=== PATIENT | female | born 1985 | race Caucasian/White ===

== ENCOUNTER 2022-09-21 15:06 | Outpatient (REF) | payer BC, SELFPAY ==
--- OUTSIDE RECORDS SUMMARY | 2022-09-21 15:11 | XMS_ITS | Clinical Summary ---
:1985 Author Organization [facility] [place] [address] Care Team Providers Name Role Phone Clinic, No Pcp Or Primary Care Provider Unavailable Allergies No known active allergies Medications Medication Sig Dispensed Refills Start Date End Date Status valACYclovir (VALTREX) Take 1 g by mouth 0 Active 1 gram tablet 2 times daily if needed for Other (Specify). Active Problems Not on file Social History Tobacco Use Types Packs/Day Years Used Date Never Assessed Sex Assigned at Date Recorded Not on file Last Filed Vital Signs Vital Sign Reading Time Taken Comments Blood Pressure 116/66 12/15/2019 4:31 PM [employer] Pulse 85 12/15/2019 4:31 PM [employer] Temperature 36.8 ??C (98.2 ??F) 12/15/2019 3:32 PM [employer] Respiratory Rate 18 12/15/2019 3:32 PM [employer] Oxygen Saturation 97% 12/15/2019 4:31 PM [employer] Inhaled Oxygen Concentration - - Weight 95.2 kg (209 lb 12.8 oz) 12/15/2019 3:32 PM [employer] Height 172.7 cm (5' 8) 12/15/2019 3:32 PM [employer] Body Mass Index 31.9 12/15/2019 3:32 PM [employer] Plan of Treatment Not on file Results Not on filefrom Last 3 Months Insurance Payer Benefit Plan / Subscriber ID Effective Dates Phone Addre ss Type Group BLUE CROSS BLUE CROSS OF [id number] 2019-Present [address] [place] [address] Care Teams Legal Billing Clerk Relationship Specialty Start Date End Date Clinic, No Pcp Or PCP - General 12/15/19 .
[2022-09-25 17:45] LABS: Progesterone, HPLC-MS/MS 16.92 ng/mL
== END 2022-09-21 15:07 | disposition home or self-care (01) ==
LOC: NPINS 15:06
PROVIDERS: PCP Physician Assistant Medical
DX: O09.01 Supervision of pregnancy with history of infertility, first trimester (principal)
CPT/HCPCS: 84144

== ENCOUNTER 2023-01-10 09:49 | Emergency (ER) | payer BC, SELFPAY ==
[2023-01-10 10:01] VITALS: BP 122/83; PULSE 80; RESP 18; TEMP 36.8; O2SAT 97; BMI 30.3
--- NOTE | 2023-01-10 10:25 | CRLHL7_ITS ---
For Patients: As a result of the Century Cures Act, medical imaging exams and procedure reports are released immediately into your electronic medical record. You may view this report before your referring provider. If you have questions, please contact your health care provider. INDICATION: Diffuse pelvic pain 2 days post egg retrieval.. TECHNIQUE: Ultrasound pelvis transabdominal and transvaginal for better assessment or to better visualize the endometrium. Real-time sonographic images with spectral and color Doppler imaging of the ovaries were obtained. COMPARISON: None. FINDINGS: Uterus: Normal echotexture of the myometrium. No masses. Endometrium: Transvaginal imaging was performed to better evaluate the endometrium. Endometrial thickness measures 10 mm. No sign of endometrial mass or fluid. Right ovary measures 3.8 x 2.5 x 2.8 cm and left ovary measures 3.8 x 2.6 x 3.7 cm. No ovarian or adnexal masses. Normal arterial and venous blood flow is demonstrated in both ovaries. Cul-de-sac: No significant free fluid. IMPRESSION: Ovaries and uterus are unremarkable. No evidence of hemorrhage or fluid collections post egg retrieval. Dictated by Baylee Smith MD @ 01/10/2023 12:58:31 PM (Electronically Signed)
--- NOTE | 2023-01-10 11:47 | ED.NURSE ---
Patient feeling improvement of symptoms noted after ultrasound. Would like to undergo urine and blood lab work but declined IV fluids and medications. Provider updated.
[2023-01-10 11:56] LABS: Appearance Urine Clear (Clear); Bilirubin Urine Negative (Negative); Blood Urine Negative (Negative); Color Urine Yellow (Yellow); Glucose Urine Negative (Negative); Ketones Urine Negative (Negative); Leukocyte Esterase Urine Negative (Negative); Nitrite Urine Negative (Negative); Protein Urine Negative (Negative); Urobilinogen Urine 0.2 (0.2-1.0)
--- NOTE | 2023-01-10 12:05 | ED.NURSE ---
Patient was unable to get labs through draw, decided to have IV insertion and fluids.
[2023-01-10 12:10] LABS: Basophils Absolute Auto 0.01 K/uL (0.00-0.30); Basophils Percent Auto 0.2 % (0.0-3.0); Eosinophils Absolute Auto 0.04 K/uL (0.00-0.50); Eosinophils Percent Auto 0.7 % (0.0-7.0); Hematocrit 41.7 % (33.0-51.0); Hemoglobin* 13.9 gm/dL (12.0-16.0); Immature Granulocytes Abs Auto 0.03 K/uL (0.00-0.30); Immature Granulocytes Pct Auto 0.5 %; Lymphocytes Absolute Auto 1.18 K/uL (0.90-2.90); Lymphocytes Percent Auto 20.2 % (20-44); Mean Corpuscular HGB Conc 33 gm/dL (32-36); Mean Corpuscular Hemoglobin 31 pg (26-34); Mean Corpuscular Volume 94 fL (80-100); Monocytes Percent Auto 7.7 % (0.0-11.0); Neutrophils Absolute Auto 4.12 K/uL (1.7-7.0); Neutrophils Percent Auto 70.7 % (42.0-72.0); Platelet Count* 185 K/uL (140-440); RDW Coefficient of Variation % 12.1 % (11.5-15.5); Red Blood Count 4.43 m/uL (4.00-5.20); White Blood Count* 5.83 K/uL (4.50-11.00)
[2023-01-10] MEDS: KETOROLAC 30 MG/ML inj IVP (12:10)
[2023-01-10] MEDS: 0.9 % SODIUM CHLORIDE 1000 ml 1,000 ML IV (12:11)
[2023-01-10 12:16] LABS: Slide Review Reflex No
--- NOTE | 2023-01-10 12:25 | ED_ITS ---
HPI - Abdominal Pain General Date Seen: 01/10/23 Chief Complaint: Abdominal Pain Stated Complaint: Abdominal pain, lightheaded Time Seen by Provider: 01/10/23 09:57 Source: patient Mode of arrival: ambulatory Limitations: no limitations History of Present Illness HPI narrative: Patient is a nice 37-year-old female who is undergoing fertility treatment, she underwent a egg harvesting 2 days ago, this was done transvaginally with ultrasound guidance, she has had pain off and on since then and the pain became exquisitely tender today, she describes across her lower quadrants, doubling her over, not associated with fevers chills or sweats, she has had normal bowel movements denies any dysuria frequency associated with this, no nausea vomiting but she has felt maybe a little bit hot. Denies any sore throat cold-like symptoms, she called her reproductive provider, and they have not gotten back to her yet. MD elicited complaint: abdominal pain Pertinent past history: none Related Data Patient : No Home Medications Medication Instructions Recorded Confirmed bupropion HCl 150 mg tablet,12 hr mg PO BID 07/01/22 08/24/22 sustained-release doxycycline hyclate 100 mg tablet mg PO 07/01/22 08/24/22 103-folic acid 400 tab PO 07/01/22 08/24/22 mcg-omeg3 32.5 mg-dha-fish oil chew tablet ( with DHA and Folic Acid) Previous Rx's Medication Instructions Recorded sertraline 50 mg tablet 50 mg PO QDAY #60 tabs 08/24/22 valacyclovir 500 mg tablet 500 mg PO DAILY #90 tabs 11/09/22 Allergies Allergy/AdvReac Type Severity Reaction Status Date / Time amoxicillin Allergy Unknown Verified 01/10/23 10:06 Sulfamethoxazole / Allergy Severe Itchiness, Uncoded 08/24/22 10:37 trimethoprim tongue swelling Dust Allergy Mild Congestion Uncoded 08/24/22 10:37 Molds & Smuts Allergy Mild Congestion Uncoded 08/24/22 10:37 Review of Systems Status of ROS Reports: 10 or more systems reviewed and unremarkable except as noted in History and below PFSH PFSH Family History Father High blood pressure Social History Narrative: , [facility] Smoking Status: Never smoker How often do you have a drink containing alcohol: never AUDIT-C Alcohol total score: 0 Non-prescribed substance use: denies use service: No Exam Narrative: Exam Narrative: On examination she appears to be in no apparent distress speaking to me normally, pupils equal round reactive to light there is no scleral icterus or redness, oropharynx reveals normal hydration status, chest is clear bilaterally with no wheezing crackles noted heart sounds are normal, her abdomen shows some mild to moderate tenderness in the lower abdominal region. Bowel sounds are normal, she has a small bruise in the right lower quadrant. There is no peritoneal signs, no CVA tenderness, extremities are normal, normal cap refill normal movement. Const: Vital Signs, click to edit/add: Vital Signs - 24 hr 01/10/23 10:01 Temperature 98.3 F Pulse Rate [Pulse Oximeter] 80 Respiratory Rate 18 Blood Pressure [Ri ght Upper Arm] 122/83 Pulse Oximetry 97 Oxygen Delivery Me thod Room Air Documenting provider has reviewed patient's vital signs: yes Course Course Hospital Course: I reviewed the results of her tests which were all very normal, I would not at this time recommend CT scanning, her beta-hCG was elevated at 47 but she received hCG injection pre egg harvesting. Which according to the nurse she was speaking to at the fertility clinic says this is really normal. I will have the results of the ultrasound and the lab sent to her doctor. Malgorzata . I did discuss with her doing an x-ray to see if there is any significant stool load but after this discussion in her feeling better with absolutely no pain she would like to go home which I do not think is unreasonable. Vital Signs Vital signs: Initial Vital Signs Temperature 98.3 F 01/10/23 10:01 Temperature Source Temporal Artery Scan 01/10/23 10:01 Pulse Rate 80 01/10/23 10:01 Respiratory Rate 18 01/10/23 10:01 Blood Pressure 122/83 01/10/23 10:01 Blood Pressure Mean 96 01/10/23 10:01 Blood Pressure Position Supine 01/10/23 10:01 Pulse Oximetry 97 01/10/23 10:01 Oxygen Delivery Method 01/10/23 10:01 Vital Signs Temperature 98.3 F 01/10/23 10:01 Pulse Rate 80 01/10/23 10:01 Respiratory Rate 18 01/10/23 10:01 Blood Pressure 122/83 01/10/23 10:01 Pulse Oximetry 97 01/10/23 10:01 Oxygen Delivery Method 01/10/23 10:01 Temperature 98.3 F 01/10/23 10:01 Pulse Rate 80 01/10/23 10:01 Respiratory Rate 18 01/10/23 10:01 Blood Pressure 122/83 01/10/23 10:01 Pulse Oximetry 97 01/10/23 10:01 Oxygen Delivery Method 01/10/23 10:01 MDM - Abdominal Pain MDM Narrative Medical decision making narrative: During the evaluation of this patient I considered multiple differential diagnosis including life-threatening differentials which are appendicitis, aortic aneurysm, mesenteric ischemia, bowel perforation, ectopic , volvulus and bowel obstruction, other differential diagnosis include but are not limited to inflammatory bowel disease, cholecystitis, pancreatitis, hepatitis, gastritis, GERD, diverticulitis, peptic ulcer disease, pyelonephritis/UTI, renal colic/stone, pelvic inflammatory disease, cervicitis, endometritis, intrauterine , dysfunctional uterine bleeding, ovarian cyst/torsion, spontaneous as well as other etiologies Medical Records Attestation: I reviewed the patient's medical records. Lab Data Attestation: I reviewed the patient's lab results. Labs: Lab Results 01/10/23 01/10/23 01/10/23 Range/Units 11:40 12:03 12:03 WBC 5.83 (4.50-11.00) K/uL RBC 4.43 (4.00-5.20) m/uL Hgb 13.9 (12.0-16.0) gm/dL Hct 41.7 (33.0-51.0) % MCV 94 (80-100) fL MCH 31 (26-34) pg MCHC 33 (32-36) gm/dL RDW Coeff of Lizzy 12.1 (11.5-15.5) % Plt Count 185 (140-440) K/uL Neut % (Auto) 70.7 (42.0-72.0) % Lymph % (Auto) 20.2 (20-44) % [place] % (Auto) 7.7 (0.0-11.0) % Eos % (Auto) 0.7 (0.0-7.0) % Baso % (Auto) 0.2 (0.0-3.0) % Neut # (Auto) 4.12 (1.7-7.0) K/uL Lymph # (Auto) 1.18 (0.90-2.90) K/uL [place] # (Auto) 0.40 (0.00-0.90) K/UL Eos # (Auto) 0.04 (0.00-0.50) K/uL Baso # (Auto) 0.01 (0.00-0.30) K/uL Sodium (135-149) mmol/L Potassium (3.6-5.1) mmol/L Chloride (96-114) mmol/L Carbon Dioxide (20-32) mmol/L BUN (5-24) mg/dL Creatinine (0.5-1.5) mg/dL Estimated Creat Clear Estimated GFR ml/min Glucose (60-115) mg/dL Calcium (8.4-10.6) mg/dL HCG, Qual Positive (Negative) HCG, Quant mIU/mL Urine Color Yellow (Yellow) Urine Appearance Clear (Clear) Urine pH 7.0 (5.0-8.5) Ur Specific [place] 1.010 (1.000-1.030) Urine Protein Negative (Negative) Urine Glucose (UA) Negative (Negative) Urine Ketones Negative (Negative) Urine Blood Negative (Negative) Urine Nitrite Negative (Negative) Urine Bilirubin Negative (Negative) Urine Urobilinogen 0.2 (0.2-1.0) Ur Leukocyte Esterase Negative (Negative) Urine RBC 0-2 (0-2) Urine WBC 0-2 (0-5) Ur Squamous Epith Cells Few (None-Few) Urine Bacteria Few A (None) 01/10/23 01/10/23 Range/Units 12:03 12:47 WBC (4.50-11.00) K/uL RBC (4.00-5.20) m/uL Hgb (12.0-16.0) gm/dL Hct (33.0-51.0) % MCV (80-100) fL MCH (26-34) pg MCHC (32-36) gm/dL RDW Coeff of Lizzy (11.5-15.5) % Plt Count (140-440) K/uL Neut % (Auto) (42.0-72.0) % Lymph % (Auto) (20-44) % [place] % (Auto) (0.0-11.0) % Eos % (Auto) (0.0-7.0) % Baso % (Auto) (0.0-3.0) % Neut # (Auto) (1.7-7.0) K/uL Lymph # (Auto) (0.90-2.90) K/uL [place] # (Auto) (0.00-0.90) K/UL Eos # (Auto) (0.00-0.50) K/uL Baso # (Auto) (0.00-0.30) K/uL Sodium 140 (135-149) mmol/L Potassium 4.2 (3.6-5.1) mmol/L Chloride 110 (96-114) mmol/L Carbon Dioxide 25 (20-32) mmol/L BUN 10 (5-24) mg/dL Creatinine 0.6 (0.5-1.5) mg/dL Estimated Creat Clear 135.46 Estimated GFR 119 ml/min Glucose 96 (60-115) mg/dL Calcium 9.3 (8.4-10.6) mg/dL HCG, Qual (Negative) HCG, Quant 45.37 mIU/mL Urine Color (Yellow) Urine Appearance (Clear) Urine pH (5.0-8.5) Ur Specific [place] (1.000-1.030) Urine Protein (Negative) Urine Glucose (UA) (Negative) Urine Ketones (Negative) Urine Blood (Negative) Urine Nitrite (Negative) Urine Bilirubin (Negative) Urine Urobilinogen (0.2-1.0) Ur Leukocyte Esterase (Negative) Urine RBC (0-2) Urine WBC (0-5) Ur Squamous Epith Cells (None-Few) Urine Bacteria (None) Imaging Data Pelvic ultrasound: Radiologist's impression: Patient: TONYA COLVIN Facility:?[facility] Patient ID:?[id number] Site Patient ID:?[id number]. Site :?1985 Study:?US Pelvis -01/10/2023 11:45:21 AM Ordering Physician:Rickie Trejo Final Report: INDICATION: Diffuse pelvic pain 2 days post egg retrieval.. TECHNIQUE: Ultrasound pelvis transabdominal and transvaginal for better assessment or to better visualize the endometrium. Real-time sonographic images with spectral and color Doppler imaging of the ovaries were obtained. COMPARISON: None. FINDINGS: Uterus: Normal echotexture of the myometrium. No masses. Endometrium: Transvaginal imaging was performed to better evaluate the endometrium. Endometrial thickness measures 10 mm. No sign of endometrial mass or fluid. Right ovary measures 3.8 x 2.5 x 2.8 cm and left ovary measures 3.8 x 2.6 x 3.7 cm. No ovarian or adnexal masses. Normal arterial and venous blood flow is demonstrated in both ovaries. Cul-de-sac: No significant free fluid. IMPRESSION: Ovaries and uterus are unremarkable. No evidence of hemorrhage or fluid collections post egg retrieval. Dictated by Baylee Smith MD @ 01/10/2023 12:58:31 PM (Electronic Signature) Discharge Plan Discharge Clinical Impression: Abdominal pain Patient Disposition: Home w/ Parent or Adult Condition: Improved Instructions: Abdominal Pain (ED) Additional Instructions: Home, rest, you can use some Tylenol for the discomfort, fluids, and if the pain worsens or changes with fevers chills nausea vomiting please come back. I will send the results to at [phone] Prescriptions: No Action sertraline 50 mg tablet 50 mg PO QDAY Qty: 60 0RF bupropion HCl 150 mg tablet sustained-release 12 hr PO BID doxycycline hyclate 100 mg tablet PO with DHA-Folic Acid 400-32.5 mcg-mg tablet,chewable PO valacyclovir 500 mg tablet 500 mg PO DAILY Qty: 90 3RF Follow Up/Referrals: Bull Dasilva PA-C [Primary Care Provider] - Stand Alone Forms: [facility] Info Instructions
[2023-01-10 12:28] LABS: Chloride* 110 mmol/L (96-114); Sodium* 140 mmol/L (135-149)
[2023-01-10 12:29] LABS: Potassium* 4.2 mmol/L (3.6-5.1)
[2023-01-10 12:31] LABS: Carbon Dioxide* 25 mmol/L (20-32); Creatinine* 0.6 mg/dL (0.5-1.5); Est. Creatinine Clearance* 135.46; Estimated Glomerular Filt Rate 119 ml/min
[2023-01-10 12:32] LABS: Blood Urea Nitrogen* 10 mg/dL (5-24); Calcium* 9.3 mg/dL (8.4-10.6); Glucose* 96 mg/dL (60-115)
[2023-01-10 12:32] LABS: Bacteria Urine Few; RBC Urine 0-2 (0-2); Squamous Epithelial Cell Urine Few (None-Few); WBC Urine 0-2 (0-5)
[2023-01-10 12:40] LABS: HCG Qualitative Serum* Positive (Negative)
[2023-01-10 13:38] LABS: HCG Quantitative* 45.37 mIU/mL
== END 2023-01-10 14:22 | disposition home or self-care (01) ==
PROVIDERS: Emergency Provider Family Medicine; PCP Physician Assistant Medical
DX: R10.9 Unspecified abdominal pain (principal)
CPT/HCPCS: 36415; 76830; 76856; 80048; 81001; 84702; 84703; 85025; 87086; 93976; 96374; 99284; J1885; J7030

== ENCOUNTER 2023-02-21 11:14 | Day surgery (SDC) | payer BC, SELFPAY ==
[2023-02-21 11:32] LABS: Ur HCG Qualitative* Negative (Negative)
[2023-02-21 11:33] VITALS: BMI 30.5
[2023-02-21 11:41] VITALS: BP 110/76; PULSE 86; RESP 16; TEMP 37.2; O2SAT 99
[2023-02-21] MEDS: LACTATED RINGERS 1000 ML 1,000 ML 100 ML IV (11:50)
[2023-02-21] MEDS: SODIUM CHLORIDE 0.9 % (FLUSH) 10 ML SYRINGE IVF (11:50)
[2023-02-21 11:52] LABS: SARS Antigen* N (Negative)
--- NOTE | 2023-02-21 12:01 | W.ANESCHARGE ---
Anesthesia Charges Start Date/Time Anesthesia Start Date: 02/21/23 Anesthesia Start Time: 12:28 Stop Date/Time Anesthesia Stop Date: 02/21/23 Anesthesia Stop Time: 13:11
[2023-02-21] MEDS: BUPIVACAINE 0.25% 30 ML INJECTION (12:46)
[2023-02-21] MEDS: LIDOCAINE 1% MDV 20 ML INJECTION (12:46)
--- NOTE | 2023-02-21 13:06 | W.PM.GYNPROC ---
Procedure Note Time Seen by Provider: 13:06 Date Seen: 02/21/23 Procedure Details: PREOPERATIVE DIAGNOSIS: 1. Infertility. 2. Endometrial polyp by sonohysterogram. POSTOPERATIVE DIAGNOSIS: 1. Infertility. 2. Endometrial polyp(s). NAME OF PROCEDURE: 1. Hysteroscopy. 2. D and C 3. Polypectomy. SURGEON: Manjula. ANESTHESIA: Monitored anesthesia care and paracervical block. COMPLICATIONS: None.. ESTIMATED BLOOD LOSS: <10 mL. FINDINGS: Endometrial polyp arising from the anterior endometrium near the left tubal ostium. Additional polypoid-appearing endometrial tissue anteriorly and posteriorly. PATHOLOGY SPECIMENS: 1. Endometrial polyp and endometrial curettings sent together. PROCEDURE: After obtaining informed consent, the patient was taken to the operating room where she received monitored anesthesia care. She was prepared and draped in the normal sterile fashion, in the dorsal lithotomy position. An open-sided bivalve speculum was introduced into the vagina and the cervix visualized. The anterior lip of the cervix was grasped with a single-tooth tenaculum for traction. A paracervical block was then administered using a total of 20 mL of a 50/50 mixture of 0.25% Marcaine and 1% lidocaine plain. The uterus was gently sounded. Sound length was 8 cm. The cervix was gently dilated to a #6 Hegar dilator. A hysteroscope was then advanced under direct visualization through the cervix into the uterine cavity. Sterile normal saline was used as distending medium. The uterine cavity was carefully inspected with the findings noted above. Pictures were taken for documentation purposes. The TruClear morcellator was inserted through the operating channel in the hysteroscope. The morcellator was used to remove the polyp and the polypoid endometrial tissue in its entirety. The hysteroscope was then removed. The endometrial lining was then gently sharply curetted. The hysteroscope was removed. The tenaculum was removed. There was little bleeding from the tenaculum site, which was controlled with direct pressure sponge stick. All instruments were then removed. The patient tolerated the procedure well. Sponge, lap, needle, and instrument counts reported as correct x2. The patient was taken to the recovery room awake in a stable condition. She received 30 mg IV Toradol at the conclusion of the procedure.
[2023-02-21 13:10] VITALS: BP 100/72; PULSE 87; RESP 16; TEMP 36.6; O2SAT 97
[2023-02-21 13:15] VITALS: BP 111/81; PULSE 71; RESP 16; O2SAT 99
[2023-02-21 13:30] VITALS: BP 120/82; PULSE 66; RESP 16; O2SAT 99
[2023-02-21 13:45] VITALS: BP 117/77; PULSE 69; RESP 16; O2SAT 99
[2023-02-21 14:00] VITALS: BP 120/84; PULSE 72; RESP 16; O2SAT 99
--- NOTE | 2023-02-21 14:11 | W.ANESCHARGE ---
Anesthesia Charges Start Date/Time Anesthesia Start Date: 02/21/23 Anesthesia Start Time: 12:28 Stop Date/Time Anesthesia Stop Date: 02/21/23 Anesthesia Stop Time: 13:11
== END 2023-02-21 14:30 | disposition home or self-care (01) ==
LOC: OR 11:15
PROVIDERS: PCP Physician Assistant Medical; Visit Provider Obstetrics & Gynecology
PROC: 0UDB8ZZ Extraction of Endometrium, Via Natural or Artificial Opening Endoscopic (ICD-10-PCS; CPT 58558; principal; 2023-02-21 12:30)
DX: N84.0 Polyp of corpus uteri (principal); N97.9 Female infertility, unspecified
CPT/HCPCS: 58558; 00952; 81025; 87426; 88305; J1100; J1885; J2250; J2405; J2704; J3010; J3490; J7120

== ENCOUNTER 2023-05-08 09:45 | Outpatient (RCR) | payer BC, SELFPAY | END 2023-09-05 23:59 | disposition home or self-care (01) | PROVIDERS: PCP Physician Assistant Medical; Visit Provider Orthopaedic Surgery | DX: Z98.890 Other specified postprocedural states (principal); M25.562 Pain in left knee; R53.1 Weakness; R26.9 Unspecified abnormalities of gait and mobility; Z74.09 Other reduced mobility; Z51.89 Encounter for other specified aftercare | CPT/HCPCS: 97110; 97162 ==

== ENCOUNTER 2023-07-07 07:27 | Outpatient (CLI) | payer BC, SELFPAY ==
--- NOTE | 2023-07-07 07:15 | CRLHL7_ITS ---
For Patients: As a result of the Cures Act, medical imaging exams and procedure reports are released immediately into your electronic medical record. You may view this report before your referring provider. If you have questions, please contact your health care provider. INDICATION: First trimester scan, establish dates. COMPARISON: None. TECHNIQUE: Real-time patel-scale imaging of the pelvis was performed. FINDINGS: Sonographic imaging demonstrates a single living intrauterine gestation. The embryo demonstrates a regular cardiac rate measuring 166 beats per minute. The embryo`s crown-rump length measurement of 4.4 cm corresponds to a gestational age of 11 weeks 1 day with a sonographic due date of 01/25/2024. There is a normal-appearing yolk sac. There are no gross abnormalities noted within the embryo at this early state of development. The gestational sac has a normal appearance. There is no evidence of a perigestational hemorrhage. The amount of fluid within the sac appears appropriate for gestational age. The cervix is closed. The myometrium appears normal. The ovaries are of normal size. There are no suspicious fluid collections noted in the cul-de-sac. IMPRESSION: Normal first trimester OB ultrasound exam. Gestational age calculated at 11 weeks 1 day with a sonographic due date of 01/25/2024. Dictated by Gustabo Palomares MD @ 07/07/2023 9:06:34 AM (Electronically Signed)
== END 2023-07-07 07:28 | disposition home or self-care (01) ==
LOC: US 07:27
PROVIDERS: PCP Physician Assistant Medical; Visit Provider Registered Nurse
DX: Z34.91 Encounter for supervision of normal pregnancy, unspecified, first trimester (principal); Z3A.11 11 weeks gestation of pregnancy
CPT/HCPCS: 76817; 87086; 87491; 87591

== ENCOUNTER 2024-11-11 07:30 | Outpatient (RCR) | payer BC, SELFPAY | END 2025-02-07 10:20 | disposition home or self-care (01) | PROVIDERS: PCP Physician Assistant Medical; Visit Provider Student in an Organized Health Care Education/Training Program | DX: Z48.89 Encounter for other specified surgical aftercare (principal); Z98.891 History of uterine scar from previous surgery; R10.30 Lower abdominal pain, unspecified; R27.8 Other lack of coordination; K59.00 Constipation, unspecified; Z51.89 Encounter for other specified aftercare | CPT/HCPCS: 97012; 97110; 97112; 97140; 97161; 97530; 97535 ==

== ENCOUNTER 2025-06-19 09:05 | Outpatient (CLI) | payer BC, SELFPAY | END 2025-06-19 09:06 | disposition home or self-care (01) | LOC: NFLDREF 06-20 08:48 | PROVIDERS: PCP Student in an Organized Health Care Education/Training Program; Referring Provider Student in an Organized Health Care Education/Training Program; Visit Provider Obstetrics & Gynecology | DX: O03.9 Complete or unspecified spontaneous abortion without complication (principal) | CPT/HCPCS: 84702 ==

== ENCOUNTER 2025-06-20 09:25 | Outpatient (CLI) | payer BC, SELFPAY ==
--- NOTE | 2025-06-20 09:15 | CRLHL7_ITS ---
For Patients: As a result of the Century Cures Act, medical imaging exams and procedure reports are released immediately into your electronic medical record. You may view this report before your referring provider. If you have questions, please contact your health care provider. INDICATION: Follow-up blighted ovum. IVF. Clinical dates 9 weeks 1 day. COMPARISON: None available Technique: Multiple transvaginal grayscale images of the uterus obtained. FINDINGS: Uterus is anteverted. There is an irregular gestational sac measuring 13 mm, 6 weeks 1 day. No yolk sac or pole is visible. Neither maternal ovary was visible. IMPRESSION: 1. Irregular gestational sac measuring 6 weeks 1 day. No pole. Dictated by Alvino Mclaughlin MD @ 06/24/2025 2:12:42 PM (Electronically Signed)
== END 2025-06-20 09:26 | disposition home or self-care (01) ==
LOC: US 09:26
PROVIDERS: PCP Student in an Organized Health Care Education/Training Program; Visit Provider Obstetrics & Gynecology
DX: O09.811 Supervision of pregnancy resulting from assisted reproductive technology, first trimester (principal); O20.0 Threatened abortion; Z3A.09 9 weeks gestation of pregnancy
CPT/HCPCS: 76817

== ENCOUNTER 2025-06-26 09:35 | Outpatient (CLI) | payer BC, SELFPAY | END 2025-06-26 09:36 | disposition home or self-care (01) | LOC: NFLDREF 06-30 16:30 | PROVIDERS: PCP Student in an Organized Health Care Education/Training Program; Referring Provider Student in an Organized Health Care Education/Training Program; Visit Provider Obstetrics & Gynecology | DX: O02.0 Blighted ovum and nonhydatidiform mole (principal) | CPT/HCPCS: 84702 ==

== ENCOUNTER 2025-07-03 08:37 | Outpatient (CLI) | payer BC, SELFPAY | END 2025-07-03 08:38 | disposition home or self-care (01) | LOC: NFLDREF 07-07 18:44 | PROVIDERS: PCP Student in an Organized Health Care Education/Training Program; Referring Provider Student in an Organized Health Care Education/Training Program; Visit Provider Obstetrics & Gynecology | DX: O02.1 Missed abortion (principal) | CPT/HCPCS: 84702 ==

== ENCOUNTER 2025-07-10 08:40 | Outpatient (CLI) | payer BC, SELFPAY | END 2025-07-10 08:41 | disposition home or self-care (01) | LOC: NFLDREF 07-14 17:38 | PROVIDERS: PCP Student in an Organized Health Care Education/Training Program; Referring Provider Student in an Organized Health Care Education/Training Program; Visit Provider Obstetrics & Gynecology | DX: O02.1 Missed abortion (principal) | CPT/HCPCS: 84702 ==

== ENCOUNTER 2025-07-21 08:26 | Outpatient (CLI) | payer BC, SELFPAY | END 2025-07-21 08:27 | disposition home or self-care (01) | LOC: NFLDREF 07-22 18:10 | PROVIDERS: PCP Student in an Organized Health Care Education/Training Program; Referring Provider Student in an Organized Health Care Education/Training Program; Visit Provider Obstetrics & Gynecology | DX: O03.4 Incomplete spontaneous abortion without complication (principal) | CPT/HCPCS: 84702 ==

== ENCOUNTER 2025-10-31 07:20 | Outpatient (CLI) | payer BC, SELFPAY ==
--- NOTE | 2025-10-31 07:15 | CRLHL7_ITS ---
For Patients: As a result of the Cures Act, medical imaging exams and procedure reports are released immediately into your electronic medical record. You may view this report before your referring provider. If you have questions, please contact your health care provider. OB ULTRASOUND INDICATION: Dating and viability. TECHNIQUE: Real time grayscale imaging of the fetus was performed. Transvaginal. Transvaginal imaging performed to better demonstrate the endometrium and ovaries. Surgery: . IVF Transfer: 09/15/2025. GAIL by IVF: 06/03/2026. GA: 9 w, 2 d. Previous US: No. CRL: 2.5 cm. 9 w 2 d. GAIL: 06/03/2026. FHR: 176 BPM. Gestational sac: 3.4 cm. Yolk sac: N/V. Right ovary: N/V. Left ovary: N/V. IMPRESSION: 1. Single living intrauterine measures 9 weeks 2 days with sonographic due date 06/03/2026. 2. Right-sided subchorionic hemorrhage measures 2.7 x 0.9 x 1.4 cm. 3. Non-visualization of the ovaries due to bowel gas. Gustabo Palomares M.D. Diagnostic Radiologist [email or web address]/Dictated by: Gustabo Palomares MD @ 10/31/2025 10:47:00 AM (Electronically Signed)
== END 2025-10-31 07:21 | disposition home or self-care (01) ==
LOC: US 07:21
PROVIDERS: PCP Student in an Organized Health Care Education/Training Program; Visit Provider Physician Assistant
DX: O20.9 Hemorrhage in early pregnancy, unspecified (principal); Z3A.09 9 weeks gestation of pregnancy
CPT/HCPCS: 76817